=== PATIENT | female | born 1970 | race Caucasian/White ===

== ENCOUNTER 2018-02-08 16:12 | Emergency (ER) | payer SELFPAY ==
[~2018-02-08] VITALS: Ht 157.5 cm; Wt 78.0 kg
[2018-02-08 16:54] LABS: BASOPHILS % 0.4 % (0.0-2.0); EOSINOPHILS % 0.5 % (0.0-5.0); HEMATOCRIT. 39.6 % (36.0-48.0); HEMOGLOBIN. 13.8 g/dL (12.0-16.0); LYMPHOCYTES % 27.6 % (20.0-50.0); MEAN CORPUSCULAR HEMOGLOBIN 33.3 pg (28.0-32.0); MEAN CORPUSCULAR VOLUME 95.5 fL (81.0-99.0); MEAN PLATELET VOLUME 10.3 fl (7.4-10.4); MONOCYTES % 8.7 % (2.0-8.0); NEUTROPHILS % 62.8 % (40.0-76.0); PLATELET 178 x1000/uL (130-400); RED BLOOD CELL COUNT 4.15 mill/uL (4.2-5.4); RED CELL DISTRIBUTION WIDTH 12.6 % (11.6-14.6)
[2018-02-08 16:59] LABS: PROTHROMBIN TIME 10.3 sec (9.4-11.6)
[2018-02-08 17:00] LABS: CHLORIDE 107 mEq/L (98-107)
[2018-02-08 20:41] LABS: CLARITY URINE CLEAR (CLEAR); COLOR URINE YELLOW (YELLOW); KETONES URINE TRACE (NEGATIVE); LEUKOCYTE ESTERASE URINE NEGATIVE (NEGATIVE); NITRITE URINE NEGATIVE (NEGATIVE); OCCULT BLOOD URINE NEGATIVE (NEGATIVE); PROTEIN URINE NEGATIVE (NEGATIVE); SPECIFIC GRAVITY URINE 1.022 (1.005-1.030)
[2018-02-08 21:48] VITALS: BP 120/70
== END 2018-02-08 21:56 | disposition home or self-care (01) ==
LOC: ER 17:39
DX: R07.9 Chest pain, unspecified (principal); E03.9 Hypothyroidism, unspecified
CPT/HCPCS: 36415; 71045; 80053; 81003; 81025; 83880; 84443; 84484; 85025; 85610; 93005; 99285

== ENCOUNTER 2024-09-28 11:42 | Emergency (ER) | payer MEDICAID ==
[~2024-09-28] VITALS: Ht 165.1 cm; Wt 86.1 kg
[2024-09-28 12:28] VITALS: O2SAT 98
[2024-09-28] MEDS: KETOROLAC 30MG/ML VIAL IM STA (15:32)
[2024-09-28] MEDS ORDERED: NAPR-681 MT (17:16)
[2024-09-28 17:23] VITALS: BP 129/78; PULSE 78; RESP 18; TEMP 36.9; O2SAT 98
== END 2024-09-28 17:26 | disposition home or self-care (01) ==
LOC: ER 12:44
DX: M54.2 Cervicalgia (principal); R20.2 Paresthesia of skin; E03.9 Hypothyroidism, unspecified; Z90.49 Acquired absence of other specified parts of digestive tract
CPT/HCPCS: 99283; 81025; 82962; 87430; 87070; 96372; J1885